=== PATIENT | female | born 1935 | race Caucasian/White ===

== ENCOUNTER 2018-05-30 10:56 | Outpatient (CLI) | payer BC ==
[2014-05-16 00:16] VITALS: O2SAT 100
== END 2018-05-30 10:57 | disposition home or self-care (01) | DRG 556 ==
LOC: CONVCARE 10:56
PROVIDERS: ATTEND Orthopaedic Surgery
DX: M25.512 Pain in left shoulder (principal); S42.202D Unspecified fracture of upper end of left humerus, subsequent encounter for fracture with routine healing
CPT/HCPCS: 73030

== ENCOUNTER 2018-06-20 10:55 | Outpatient (CLI) | payer BC ==
[2014-05-16 00:16] VITALS: O2SAT 100
== END 2018-06-20 10:56 | disposition home or self-care (01) | DRG 561 ==
LOC: CONVCARE 10:55
PROVIDERS: ATTEND Orthopaedic Surgery
DX: S42.222D 2-part displaced fracture of surgical neck of left humerus, subsequent encounter for fracture with routine healing (principal)
CPT/HCPCS: 73030

== ENCOUNTER 2018-07-18 11:22 | Outpatient (CLI) | payer BC ==
[2014-05-16 00:16] VITALS: O2SAT 100
== END 2018-07-18 11:23 | disposition home or self-care (01) | DRG 561 ==
LOC: RAD 11:22
PROVIDERS: ATTEND Orthopaedic Surgery
DX: S42.202D Unspecified fracture of upper end of left humerus, subsequent encounter for fracture with routine healing (principal)
CPT/HCPCS: 73030

== ENCOUNTER 2018-12-13 13:36 | Inpatient (IN) | payer BC | END 2018-12-14 12:36 | disposition short-term general hospital (02) | LOC: ED 13:36 → ACUTE CARE 18:44 ==